=== PATIENT | male | born 1955 | race Caucasian/White ===

== ENCOUNTER → 2022-03-01 | Day surgery (SDC) | payer MEDICARE, OTHER ==
[~2022-03-01] VITALS: Ht 177.8 cm; Wt 98.9 kg
[~2022-03-01] MED LIST: ASPIRIN EC81 MG PO; BENAZEPRIL HCL40 MG PO; CRESTOR10 M1 PO; CYMBALTA60 MG PO; HCTZ25 MG PO; NORCO 5-325 TA1 EACH PO; NORVASC5 MG PO; PROTONIX 40MG T40 MG PO; VITAMIN B12 PO; VITAMIN D PO; ZOFRAN8 MG PO
[2022-03-01 08:04] LABS: HCT 36.3 % (42.0-52.0); HGB 10.6 g/dl (13.2-18.0); MCH 19.7 pg (25.0-31.0); MCHC 29.2 g/dL (32.0-36.0); MCV 67.3 fL (78.0-100.0); MPV 9.5 fL (6.0-9.5); RBC 5.39 M/uL (4.70-6.00); RDW 19.4 % (11.5-14.0)
[2022-03-01 10:44] LABS: CREATININE 1.05 mg/dL (0.67-1.17); POTASSIUM 3.8 mmol/L (3.5-5.1)
== END | disposition home or self-care (01) ==
LOC: FAS 07:33
PROVIDERS: Surgery
DX: K29.70 Gastritis, unspecified, without bleeding (principal); K29.80 Duodenitis without bleeding; K25.9 Gastric ulcer, unspecified as acute or chronic, without hemorrhage or perforation; K92.1 Melena; I10 Essential (primary) hypertension; Z88.0 Allergy status to penicillin; K21.9 Gastro-esophageal reflux disease without esophagitis; E78.5 Hyperlipidemia, unspecified
CPT/HCPCS: 36415; 80048; J2704; J7120